=== PATIENT | female | born 1955 | race Caucasian/White ===

== ENCOUNTER → 2021-01-15 | Outpatient (CLI) | payer BC ==
[~2021-01-15] MED LIST: AMBEREN PO; CHEWABLE-VITE1 EACH PO; HA JOINT PO; HAIR SKIN NAIL1 EACH PO; LO-DOSE ASPIRIN81 MG PO; NORCO 5-325 TA1 EACH PO; OCUVITE EYE PL1 EACH PO; OMEGA XL PO; PRAVACHOL20 MG PO; SKIN PO; TOPROL XL25 MG PO; VITAMIN B12 PO; VITAMIN D3125 MCG PO; ZYRTEC10 M3 PO; [UNRECOGNIZED DRUG - OTHER] PO; [UNRECOGNIZED DRUG - OTHER] PO
== END ==
LOC: EXRD 08:03
DX: R22.31 Localized swelling, mass and lump, right upper limb (principal)
CPT/HCPCS: 93971